=== PATIENT | female | born 1965 | race Caucasian/White ===

== ENCOUNTER 2017-08-28 12:53 | Emergency (ER) | payer BC, OTHER ==
[2017-08-28] MEDS: IBUPROFEN 600 MG TAB PO (15:44)
== END 2017-08-28 16:03 | disposition home or self-care (01) ==
LOC: FTE 12:53
DX: M54.5 Low back pain (principal)
CPT/HCPCS: 99283

== ENCOUNTER 2018-12-04 14:41 | Emergency (ER) | payer SELFPAY, BC | END 2018-12-04 15:37 | disposition home or self-care (01) | LOC: FTE 15:37 | DX: M54.5 Low back pain (principal) | CPT/HCPCS: 99283 ==